=== PATIENT | male | born 1990 | race African-American/Black ===

== ENCOUNTER 2021-01-13 00:41 | Emergency (ER) | payer OTHER ==
[2021-01-13 01:56] VITALS: BP 120/80; PULSE 72; RESP 22; TEMP 97.8
--- NOTE | 2021-01-13 02:19 | XR ---
EXAMINATION TYPE: XR knee complete LT DATE OF EXAM: 01/13/2021 COMPARISON: NONE HISTORY: Knee pain TECHNIQUE: 3 views FINDINGS: There is 7 x 3 mm bony density at the tibial spines in the frontal view that could relate t o a chip fracture. This is probably old. There is small knee joint effusion. Joint spaces are normal. IMPRESSION: Small chip fracture of the tibial spine. This is probably an old fracture.
--- NOTE | 2021-01-13 03:38 | ED ---
Lower Extremity Injury HPI - General Chief Complaint: Extremity Injury, Lower Stated Complaint: knee pain Time Seen by Provider: 01/13/21 03:29 Source: patient Mode of arrival: ambulatory Limitations: no limitations - History of Present Illness Initial Comments: 30-year-old male patient presents the emergency department today for evaluation of increasing knee pain. Patient states that he had an injury to the left knee around 10 years ago. States that he occasionally has flareups of the pain. States that while working 12 hour shift today his knee pain got worse. Denies any swelling. Denies any redness or warmth to the knee. Denies any fever or chills. Denies numbness or tingling to the leg. Denies any new injury. Denies taking anything for pain. - Related Data Previous Rx's Medication Instructions Recorded Ibuprofen [Motrin] 600 mg PO Q8HR PRN #30 tab 01/13/21 Allergies Allergy/AdvReac Type Severity Reaction Status Date / Time No Known Allergies Allergy Verified 01/13/21 01:55 Review of Systems ROS Statement: Those systems with pertinent positive or pertinent negative responses have been documented in the HPI. ROS Other: All systems not noted in ROS Statement are negative. Past Medical History Past Medical History: Asthma History of Any Multi-Drug Resistant Organisms: None Reported Past Surgical History: Orthopedic Surgery Past Psychological History: No Psychological Hx Reported Smoking Status: Current every day smoker Past Alcohol Use History: Occasional Past Drug Use History: None Reported General Exam Limitations: no limitations General appearance: alert, in no apparent distress Respiratory exam: Present: normal lung sounds bilaterally. Absent: respiratory distress, wheezes, rales, rhonchi, stridor Cardiovascular Exam: Present: regular rate, normal rhythm, normal heart sounds. Absent: systolic murmur, diastolic murmur, rubs, gallop, clicks Extremities exam: Present: normal inspection, full ROM, normal capillary refill, other (Skin the left leg is pink, warm, dry. Cap refill less than 3 seconds. Pedal and posttibial pulses 2+.). Absent: tenderness, pedal edema, joint swelling, calf tenderness Neurological exam: Present: alert, oriented X3, CN II-XII intact Psychiatric exam: Present: normal affect, normal mood Skin exam: Present: warm, dry, intact, normal color. Absent: rash Course Vital Signs 01/13/21 01:52 Temperature 97.8 F Pulse Rate 72 Respiratory 22 Rate Blood Pressure 120/80 O2 Sat by Pulse 99 Oximetry Medical Decision Making - Medical Decision Making 30-year-old male patient presented for evaluation of nontraumatic knee pain. Physical examination is unremarkable. No soft tissue swelling, no erythema, no warmth. Neurovascular status is intact. X-ray is negative for acute injury. Did discuss findings and results with him. He is given Benjamín wrap for comfort and support. Is instructed take Tylenol Motrin for pain control. Instructed to follow-up with the primary care physician or orthopedics of his symptoms do not improve. Return parameters were discussed in detail. He verbalizes understanding and agrees with this plan. My attending is Dr. Dickey. - Radiology Data Radiology results: report reviewed, image reviewed 3 views of the left knee are obtained. Report was reviewed in its entirety. Impression by Dr. Grove shows small chip fracture of the tibial spine. This is probably an old fracture. Disposition Clinical Impression: Left knee pain Disposition: HOME SELF-CARE Condition: Good Instructions (If sedation given, give patient instructions): Knee Pain (ED) Additional Instructions: Rest, ice, elevate the knee. Use Benjamín wrap for comfort and support. Take Tylenol Motrin for pain control. Follow-up with orthopedics if your symptoms worsen. Return for any new, worsening, or concerning symptoms. Prescriptions: Ibuprofen [Motrin] 600 mg PO Q8HR PRN #30 tab PRN Reason: Pain Is patient prescribed a controlled substance at d/c from ED?: No Referrals: None,Stated [Primary Care Provider] - 1-2 days Time of Disposition: 03:38
== END 2021-01-13 03:48 | disposition home or self-care (01) ==
LOC: EC 00:41
DX: M25.562 Pain in left knee (principal); J45.909 Unspecified asthma, uncomplicated; F17.200 Nicotine dependence, unspecified, uncomplicated
CPT/HCPCS: 99283

== ENCOUNTER 2021-01-15 01:18 | Emergency (ER) | payer OTHER ==
[2021-01-15] MEDS ORDERED: guaiFENesin-DM 600/30MG 1 EACH TAB.ER.12H PO STA (01:41)
[2021-01-15] MEDS ORDERED: IBUPROFEN 600 MG STARTER PACK 4 TAB BTL PO STA (01:41)
--- NOTE | 2021-01-15 01:43 | ED ---
URI HPI - General Chief Complaint: Upper Respiratory Infection Stated Complaint: Fever, Headache Time Seen by Provider: 01/15/21 01:28 Source: patient Mode of arrival: ambulatory Limitations: no limitations - History of Present Illness Initial Comments: 30 year-old male patient presents to the emergency department for evaluation of facial pressure, congestion, and body aches. States he started with symptoms today. He did take ibuprofen around 2:30 this afternoon. Denies other medications. States he was in the waiting room of the ER the other day, may have been exposed to COVID. He denies taking his temperature. States he does have history of asthma as a child. Uses an albuterol inhaler as needed. Denies any nausea or vomiting. Denies any chest pain or shortness of breath. Denies any rash. - Related Data Previous Rx's Medication Instructions Recorded Ibuprofen [Motrin] 600 mg PO Q8HR PRN #30 tab 01/13/21 Allergies Allergy/AdvReac Type Severity Reaction Status Date / Time No Known Allergies Allergy Verified 01/15/21 01:23 Review of Systems ROS Statement: Those systems with pertinent positive or pertinent negative responses have been documented in the HPI. ROS Other: All systems not noted in ROS Statement are negative. Past Medical History Past Medical History: Asthma History of Any Multi-Drug Resistant Organisms: None Reported Past Surgical History: Orthopedic Surgery Additional Past Surgical History / Comment(s): rt wrist Past Psychological History: No Psychological Hx Reported Smoking Status: Current every day smoker Past Alcohol Use History: Occasional Past Drug Use History: None Reported General Exam Limitations: no limitations General appearance: alert, in no apparent distress, other (This is a well- developed, well-nourished adult male in no acute distress.) ENT exam: Present: normal exam, normal oropharynx, mucous membranes moist, TM's normal bilaterally Respiratory exam: Present: normal lung sounds bilaterally. Absent: respiratory distress, wheezes, rales, rhonchi, stridor Cardiovascular Exam: Present: regular rate, normal rhythm, normal heart sounds. Absent: systolic murmur, diastolic murmur, rubs, gallop, clicks GI/Abdominal exam: Present: soft, normal bowel sounds. Absent: distended, tenderness, guarding, rebound, rigid Neurological exam: Present: alert, oriented X3, CN II-XII intact Psychiatric exam: Present: normal affect, normal mood Skin exam: Present: warm, dry, intact, normal color. Absent: rash Course Vital Signs 01/15/21 01:19 Temperature 99.3 F Pulse Rate 80 Respiratory 20 Rate Blood Pressure 125/84 O2 Sat by Pulse 100 Oximetry Medical Decision Making - Medical Decision Making 30-year-old male patient with nasal congestion and facial pressure and body aches presents for evaluation. He did test positive for COVID-19. Physical examination is unremarkable. He is having no breathing difficulties. Due to history of asthma he did meet criteria to receive monoclonal antibodies. Discuss risks and benefits. He agreed to receive the infusion. He'll be discharged to follow up with his primary care physician for recheck in 1-2 days. Return parameters were discussed in detail. He verbalizes understanding and agrees with this plan. Case discussed with my attending Dr. Dickey. - Lab Data Lab Results 01/15/21 Range/Units 01:24 Coronavirus (PCR) Detected A (Not Detectd) Disposition Clinical Impression: COVID-19 Disposition: HOME SELF-CARE Condition: Good Instructions (If sedation given, give patient instructions): Coronavirus Disease 2019 (COVID-19) Additional Instructions: Tips to help you feel better: -Maintain adequate fluid intake - especially water. -Rest, you are healing your body will require extra sleep. -Eat even if you do not feel like it - broth, jello, toast are fine if you cannot eat full meals. -Take tylenol and motrin alternating (if you have no allergies or have not been instructed to avoid these medications) to help with body aches and fevers. -Obtain over the counter vitamin C, zinc, and vitamin D3. -Take medications as prescribed. Follow-up with your primary care physician for recheck in 1-2 days. Return for any new, worsening, or concerning symptoms. Is patient prescribed a controlled substance at d/c from ED?: No Referrals: None,Stated [Primary Care Provider] - 1-2 days
[2021-01-15] MEDS ORDERED: SODIUM CHLORIDE 0.9% 50 ML IVPB ONE (02:30)
[2021-01-15] MEDS ORDERED: SOTROVIMAB (EUA) 500 MG in SODIUM CHLORIDE 0.9% 100 ML IVPB ONE (02:30)
[2021-01-15 03:39] VITALS: RESP 18
[2021-01-15 05:40] VITALS: BP 126/80; PULSE 79; TEMP 98.8
== END 2021-01-15 05:40 | disposition home or self-care (01) ==
LOC: EC 01:18
DX: U07.1 COVID-19 (principal); J45.909 Unspecified asthma, uncomplicated; F17.200 Nicotine dependence, unspecified, uncomplicated
CPT/HCPCS: 87635; 99284; Q0247

== ENCOUNTER 2021-01-17 08:27 | Emergency (ER) | payer OTHER ==
[2021-01-17 08:32] VITALS: RESP 18
[2021-01-17] MEDS ORDERED: SODIUM CHLORIDE 0.9% 1,000 ML IV STA (08:40)
[2021-01-17] MEDS ORDERED: KETOROLAC 15 MG/ML 1 ML VIAL IVP STA (08:40)
[2021-01-17 09:04] LABS: Basophils % (A) 1 %; Eosinophils # (A) 0.2 k/uL (0-0.7); Eosinophils % (A) 3 %; Lymphocytes % (A) 16 %; MCH 32.1 pg (25.0-35.0); MCHC 33.7 g/dL (31.0-37.0); Mean Platelet Volume 7.6; Monocytes # (A) 0.1 k/uL (0-1.0); Monocytes % (A) 2 %; Neutrophils # (A) 5.1 k/uL (1.3-7.7); Neutrophils % (A) 78 %; Platelet Count 207 k/uL (150-450); RBC 6.19 m/uL (4.30-5.90); RDW 12.9 % (11.5-15.5); WBC 6.6 k/uL (3.8-10.6)
--- NOTE | 2021-01-17 09:13 | XR ---
EXAMINATION TYPE: XR KUB DATE OF EXAM: 01/17/2021 COMPARISON: None INDICATION: Abdomen pain and urine TECHNIQUE: Single view abdomen upright view FINDINGS: There is a nonspecific bowel gas pattern. Psoas margins are poorly visualized. Organomegaly is not evident. Scoliosis the lower lumbar spine. No suspicious renal or ureteral stones are evident. IMPRESSION: 1. Nonspecific abdomen
[2021-01-17 09:17] LABS: Appearance,Urine Clear (Clear); Bilirubin,Urine Negative (Negative); Blood,Urine Large (Negative); Color,Urine Yellow; Glucose,Urine (UA) Negative (Negative); Ketones,Urine Negative (Negative); Leukocyte Esterase,Urine Small (Negative); Mucus,Urine Rare /hpf; Nitrite,Urine Negative (Negative); PH, Urine 6.5 (5.0-8.0); Protein,Urine Trace (Negative); RBC,Urine >182 /hpf (0-5); Specific Gravity,Urine 1.022 (1.001-1.035); Squamous Epithelial Cell,Urine 1 /hpf (0-4); Urobilinogen,Urine <2.0 mg/dL (<2.0); WBC,Urine 19 /hpf (0-5)
[2021-01-17 09:22] LABS: ALT 48 U/L (4-49); AST 50 U/L (17-59); African American GFR (CKD) >90 (>60 ml/min/1.73 sqM); Albumin 5.6 g/dL (3.5-5.0); Alkaline Phosphatase 118 U/L (38-126); Amylase 99 U/L (30-110); Anion Gap 15 mmol/L; Blood Urea Nitrogen 10 mg/dL (9-20); Calcium 10.1 mg/dL (8.4-10.2); Carbon Dioxide 23 mmol/L (22-30); Chloride 104 mmol/L (98-107); Glucose 107 mg/dL (74-99); Lipase 195 U/L (23-300); Non-African American GFR(CKD) >90 (>60 ml/min/1.73 sqM); Potassium 4.1 mmol/L (3.5-5.1); Sodium 142 mmol/L (137-145); Total Bilirubin 0.6 mg/dL (0.2-1.3); Total Protein 9.9 g/dL (6.3-8.2)
[2021-01-17 09:29] LABS: HCT 58.8 % (39.0-53.0); HGB 19.8 gm/dL (13.0-17.5)
--- NOTE | 2021-01-17 10:04 | ED ---
Abdominal Pain HPI - General Chief Complaint: Abdominal Pain Stated Complaint: Covid+/LINDA/Blood in Urine Time Seen by Provider: 01/17/21 08:33 Source: patient, RN notes reviewed Mode of arrival: ambulatory Limitations: no limitations - History of Present Illness Initial Comments: Patient is a 30-year-old male that presents to the emergency department due to having blood and discomfort in his urine. Patient notes that he did have a recent sexual encounter and would like to be tested for STDs also. He notes that he contacted his partner who stated that she is STD free. Patient was otherwise well-appearing in no apparent distress. He did know he has a history of kidney stones. He denied chest pain shortness of breath headache nausea vomiting diarrhea constipation fever fatigue chills. - Related Data Home Medications Medication Instructions Recorded Confirmed Acetaminophen Tab [Tylenol Tab] 1,000 mg PO Q6HR PRN 01/17/21 01/17/21 Ibuprofen [Motrin Ib] 400 mg PO Q6H PRN 01/17/21 01/17/21 Previous Rx's Medication Instructions Recorded Cephalexin [Keflex] 500 mg PO Q6HR #40 cap 01/17/21 Ketorolac [Toradol] 10 mg PO Q8HR #15 tab 01/17/21 Tamsulosin [Flomax] 0.4 mg PO DAILY #7 cap 01/17/21 Allergies Allergy/AdvReac Type Severity Reaction Status Date / Time No Known Allergies Allergy Verified 01/17/21 09:48 Review of Systems ROS Statement: Those systems with pertinent positive or pertinent negative responses have been documented in the HPI. ROS Other: All systems not noted in ROS Statement are negative. Past Medical History Past Medical History: Asthma History of Any Multi-Drug Resistant Organisms: None Reported Past Surgical History: Orthopedic Surgery Additional Past Surgical History / Comment(s): rt wrist Past Psychological History: No Psychological Hx Reported Smoking Status: Current every day smoker Past Alcohol Use History: Occasional Past Drug Use History: None Reported General Exam Limitations: no limitations General appearance: alert, in no apparent distress Head exam: Present: atraumatic, normocephalic, normal inspection Eye exam: Present: normal appearance, PERRL, EOMI. Absent: scleral icterus, con junctival injection, periorbital swelling ENT exam: Present: normal exam, mucous membranes moist Neck exam: Present: normal inspection Respiratory exam: Present: normal lung sounds bilaterally. Absent: respiratory distress, wheezes, rales, rhonchi, stridor Cardiovascular Exam: Present: regular rate, normal rhythm, normal heart sounds. Absent: systolic murmur, diastolic murmur, rubs, gallop, clicks GI/Abdominal exam: Present: soft, normal bowel sounds. Absent: distended, tenderness, guarding, rebound, rigid Extremities exam: Present: normal inspection, full ROM, normal capillary refill. Absent: tenderness, pedal edema, joint swelling, calf tenderness Back exam: Present: normal inspection, CVA tenderness (L) Neurological exam: Present: alert, oriented X3 Psychiatric exam: Present: normal affect, normal mood Skin exam: Present: warm, dry, intact, normal color. Absent: rash Course Vital Signs 01/17/21 08:28 Temperature 98.3 F Pulse Rate 66 Respiratory 18 Rate Blood Pressure 116/78 O2 Sat by Pulse 100 Oximetry Procedures - [facility] Protocol (Time Out) Nurse: Wiliam Conteh Medical Decision Making - Medical Decision Making 30-year-old male complaining of hematuria and discomfort in his urine, history of kidney stones. Labs, STD screening, KUB, 15 mg of Toradol, 1 L normal saline ordered. Labs:Hemoglobin 19.8, hematocrit 58.8, CMP unremarkable, urinalysis shows greater than 182 red blood cells 19 white blood cells. Second liter of normal saline ordered due to elevated hemoglobin and hematocrit and patient's dehydration status. 1 g Rocephin ordered for possible UTI. KUB negative for any acute process. Patient most likely has kidney stone. - Lab Data Result diagrams: 01/17/21 08:53 01/17/21 08:53 Lab Results 01/17/21 01/17/21 01/17/21 Range/Units 08:46 08:53 08:53 WBC 6.6 (3.8-10.6) k/uL RBC 6.19 H (4.30-5.90) m/uL Hgb 19.8 H* (13.0-17.5) gm/dL Hct 58.8 H* (39.0-53.0) % MCV 95.0 (80.0-100.0) fL MCH 32.1 (25.0-35.0) pg MCHC 33.7 (31.0-37.0) g/dL RDW 12.9 (11.5-15.5) % Plt Count 207 (150-450) k/uL MPV 7.6 Neutrophils % 78 % Lymphocytes % 16 % Monocytes % 2 % Eosinophils % 3 % Basophils % 1 % Neutrophils # 5.1 (1.3-7.7) k/uL Lymphocytes # 1.0 (1.0-4.8) k/uL Monocytes # 0.1 (0-1.0) k/uL Eosinophils # 0.2 (0-0.7) k/uL Basophils # 0.0 (0-0.2) k/uL Sodium 142 (137-145) mmol/L Potassium 4.1 (3.5-5.1) mmol/L Chloride 104 (98-107) mmol/L Carbon Dioxide 23 (22-30) mmol/L Anion Gap 15 mmol/L BUN 10 (9-20) mg/dL Creatinine 0.93 (0.66-1.25) mg/dL Est GFR (CKD-EPI)AfAm >90 (>60 ml/min/1.73 sqM) Est GFR (CKD-EPI)NonAf >90 (>60 ml/min/1.73 sqM) Glucose 107 H (74-99) mg/dL Calcium 10.1 (8.4-10.2) mg/dL Total Bilirubin 0.6 (0.2-1.3) mg/dL AST 50 (17-59) U/L ALT 48 (4-49) U/L Alkaline Phosphatase 118 (38-126) U/L Total Protein 9.9 H (6.3-8.2) g/dL Albumin 5.6 H (3.5-5.0) g/dL Amylase 99 (30-110) U/L Lipase 195 (23-300) U/L Urine Color Yellow Urine Appearance Clear (Clear) Urine pH 6.5 (5.0-8.0) Ur Specific [place] 1.022 (1.001-1.035) Urine Protein Trace H (Negative) Urine Glucose (UA) Negative (Negative) Urine Ketones Negative (Negative) Urine Blood Large H (Negative) Urine Nitrite Negative (Negative) Urine Bilirubin Negative (Negative) Urine Urobilinogen <2.0 (<2.0) mg/dL Ur Leukocyte Esterase Small H (Negative) Urine RBC >182 H (0-5) /hpf Urine WBC 19 H (0-5) /hpf Ur Squamous Epith Cells 1 (0-4) /hpf Urine Mucus Rare H (None) /hpf - Radiology Data Radiology results: report reviewed, image reviewed KUB: Nonspecific abdomen. Disposition Clinical Impression: Kidney stone, Hematuria Disposition: HOME SELF-CARE Condition: Stable Instructions (If sedation given, give patient instructions): Kidney Stones (ED) Additional Instructions: Please return to the Emergency Department if symptoms worsen or any other concerns. Follow-up with primary care 1-2 days. Take medications as prescribed. Is patient prescribed a controlled substance at d/c from ED?: No Referrals: None,Stated [Primary Care Provider] - 1-2 days Time of Disposition: 10:17
[2021-01-17 10:51] VITALS: BP 113/56; PULSE 77; TEMP 97
[2021-01-18 16:47] LABS: C. trachomatis,PCR Negative (Neg,Equiv); Chlamydia trachomatis Source Urine; N. gonorrhoeae,PCR Negative (Neg,Equiv); Neisseria Source Urine
== END 2021-01-17 11:15 | disposition home or self-care (01) ==
LOC: EC 08:27
DX: N20.0 Calculus of kidney (principal); R31.9 Hematuria, unspecified; F17.200 Nicotine dependence, unspecified, uncomplicated
CPT/HCPCS: 36415; 80053; 82150; 83690; 85025; 81001; 87491; 87591; 87086; 74018; 96374; 99283; J1885

== ENCOUNTER 2021-02-13 00:03 | Emergency (ER) | payer OTHER ==
[2021-02-13 00:13] VITALS: BP 93/61; PULSE 86; RESP 18; TEMP 97.2
[2021-02-13] MEDS ORDERED: ACET/COD 300 MG/30 MG STARTER PACK 6 TAB BTL PO STA (02:41)
[2021-02-13] MEDS ORDERED: DIAZEPAM 5 MG/ML 2 ML INJ IM ONE (02:42)
[2021-02-13] MEDS ORDERED: KETOROLAC 15 MG/ML 1 ML VIAL IM STA (02:42)
--- NOTE | 2021-02-13 02:43 | ED ---
Back Pain HPI - General Chief Complaint: Back Pain/Injury Stated Complaint: Low Back Pain Time Seen by Provider: 02/13/21 01:57 Source: patient Limitations: no limitations - History of Present Illness Initial Comments: 30-year-old male patient presents to the emergency department today for evaluation of increased his chronic low back pain. Patient states his been worsening over the last couple days after he lifted a heavy suitcase. He states he felt his back pull. Denies pain radiation down his legs. Denies numbness or tingling to the lower extremities. Denies any fever or chills. Denies abdominal pain. He denies any saddle anesthesia, loss of bowel or bladder control. Patient states he did take Tylenol Motrin at home without relief. - Related Data Home Medications Medication Instructions Recorded Confirmed Acetaminophen Tab [Tylenol Tab] 1,000 mg PO Q6HR PRN 01/17/21 01/17/21 Ibuprofen [Motrin Ib] 400 mg PO Q6H PRN 01/17/21 01/17/21 Previous Rx's Medication Instructions Recorded Albuterol Sulfate [Albuterol 2 puff PO Q6H #8.5 gm 01/17/21 Sulfate Hfa] Cephalexin [Keflex] 500 mg PO Q6HR #40 cap 01/17/21 Ketorolac [Toradol] 10 mg PO Q8HR #15 tab 01/17/21 Tamsulosin [Flomax] 0.4 mg PO DAILY #7 cap 01/17/21 Cyclobenzaprine [Flexeril] 10 mg PO TID #15 tab 02/13/21 Naproxen [EC-Naprosyn] 500 mg PO BID PRN #30 tab 02/13/21 Allergies Allergy/AdvReac Type Severity Reaction Status Date / Time No Known Allergies Allergy Verified 02/13/21 00:13 Review of Systems ROS Statement: Those systems with pertinent positive or pertinent negative responses have been documented in the HPI. ROS Other: All systems not noted in ROS Statement are negative. Past Medical History Past Medical History: Asthma History of Any Multi-Drug Resistant Organisms: None Reported Past Surgical History: Orthopedic Surgery Additional Past Surgical History / Comment(s): rt wrist Past Psychological History: No Psychological Hx Reported Smoking Status: Never smoker Past Alcohol Use History: Occasional Past Drug Use History: None Reported General Exam Limitations: no limitations General appearance: alert, in no apparent distress, other (This is a well- developed, well-nourished adult male in no acute distress.) Respiratory exam: Present: normal lung sounds bilaterally. Absent: respiratory distress, wheezes, rales, rhonchi, stridor Cardiovascular Exam: Present: regular rate, normal rhythm, normal heart sounds. Absent: systolic murmur, diastolic murmur, rubs, gallop, clicks GI/Abdominal exam: Present: soft, normal bowel sounds. Absent: distended, tenderness, guarding, rebound, rigid Extremities exam: Present: normal inspection, full ROM, normal capillary refill, other (Skin to his lower child is is pink, warm, dry. Cap refill less than 3 seconds.). Absent: tenderness, pedal edema, joint swelling, calf tenderness Back exam: Present: normal inspection. Absent: vertebral tenderness Neurological exam: Present: alert, oriented X3, CN II-XII intact Psychiatric exam: Present: normal affect, normal mood Skin exam: Present: warm, dry, intact, normal color. Absent: rash Course Vital Signs 02/13/21 00:10 Temperature 97.2 F L Pulse Rate 86 Respiratory 18 Rate Blood Pressure 93/61 O2 Sat by Pulse 99 Oximetry Medical Decision Making - Medical Decision Making 30-year-old male patient presents to the emergency department today for evaluation of low back pain that since after he lifted a suitcase. Physical examination is unremarkable. He is neurovascularly and neurologically intact. No concerning symptoms for cauda equina. Vital signs are unremarkable. He is given pain medication here. We discharged to follow up with the primary care physician for recheck in 1-2 days. Return parameters were discussed in detail. He verbalizes understanding and agrees this plan. My attending is Dr. Romero. Disposition Clinical Impression: Acute low back pain Disposition: HOME SELF-CARE Condition: Good Instructions (If sedation given, give patient instructions): Acute Low Back Pain (ED) Additional Instructions: Perform gentle range of motion exercises. Take medications as directed. Follow-up with the primary care physician for recheck in 1-2 days. Follow-up with back specialist if her symptoms are not improved over the next 1-2 weeks. Return for any new, worsening, or concerning symptoms. Prescriptions: Naproxen [EC-Naprosyn] 500 mg PO BID PRN #30 tab PRN Reason: Pain Cyclobenzaprine [Flexeril] 10 mg PO TID #15 tab Is patient prescribed a controlled substance at d/c from ED?: No Referrals: Francisco Sun DO [Doctor of Osteopathic Medicine] - 1-2 days Time of Disposition: 02:43
== END 2021-02-13 02:57 | disposition home or self-care (01) ==
LOC: EC 00:03
DX: M54.50 Low back pain, unspecified (principal); J45.909 Unspecified asthma, uncomplicated; Z72.89 Other problems related to lifestyle; Z79.51 Long term (current) use of inhaled steroids
CPT/HCPCS: 99283; 96372 ×2; J3360; J1885

== ENCOUNTER 2021-07-25 15:11 | Emergency (ER) | payer OTHER ==
[2021-07-25 15:21] VITALS: TEMP 98.7
[2021-07-25 15:58] LABS: Basophils # (A) 0.1 k/uL (0-0.2); Basophils % (A) 2 %; Eosinophils % (A) 1 %; HGB 15.8 gm/dL (13.0-17.5); Lymphocytes # (A) 0.6 k/uL (1.0-4.8); Lymphocytes % (A) 9 %; MCH 30.9 pg (25.0-35.0); MCHC 33.6 g/dL (31.0-37.0); MCV 91.7 fL (80.0-100.0); Mean Platelet Volume 7.4; Monocytes # (A) 0.5 k/uL (0-1.0); Monocytes % (A) 8 %; Neutrophils # (A) 4.9 k/uL (1.3-7.7); Neutrophils % (A) 78 %; Platelet Count 197 k/uL (150-450); RBC 5.12 m/uL (4.30-5.90); WBC 6.4 k/uL (3.8-10.6)
[2021-07-25 16:02] LABS: ALT 77 U/L (4-49); AST 61 U/L (17-59); African American GFR (CKD) >90 (>60 ml/min/1.73 sqM); Albumin 4.8 g/dL (3.5-5.0); Alkaline Phosphatase 86 U/L (38-126); Anion Gap 11 mmol/L; Blood Urea Nitrogen 7 mg/dL (9-20); Calcium 9.1 mg/dL (8.4-10.2); Carbon Dioxide 21 mmol/L (22-30); Chloride 107 mmol/L (98-107); Glucose 100 mg/dL (74-99); Non-African American GFR(CKD) >90 (>60 ml/min/1.73 sqM); Potassium 3.6 mmol/L (3.5-5.1); Sodium 139 mmol/L (137-145); Total Bilirubin 0.4 mg/dL (0.2-1.3); Total Protein 7.7 g/dL (6.3-8.2)
--- NOTE | 2021-07-25 16:23 | XR ---
EXAMINATION TYPE: XR chest 2V DATE OF EXAM: 07/25/2021 COMPARISON: None available HISTORY: Shortness of breath and chest pain TECHNIQUE: Frontal and lateral views of the chest are obtained. FINDINGS: Unremarkable lungs. No pleural effusion or pneumothorax. No cardiomegaly. Unremarkable bony thoracic cage. IMPRESSION: No acute pulmonary abnormality identified.
--- NOTE | 2021-07-25 16:25 | ED ---
URI HPI - General Chief Complaint: Upper Respiratory Infection Stated Complaint: Chest Cold,SOB Time Seen by Provider: 07/25/21 15:42 Source: patient, RN notes reviewed Mode of arrival: ambulatory Limitations: no limitations - History of Present Illness Initial Comments: Patient is a 30-year-old -[place] Citizen male presents to the emergency room with complaints of worsening shortness of breath that began yesterday. He reports that he is currently living in a group setting and one of the other residents was recently sick, testing positive for influenza. He has a past medical history significant for asthma however he denies any recent flares or current medication for his asthma. He denies fevers, chills, chest pain, abdominal pain, nausea, vomiting or diarrhea. He denies any other complaints or concerns at this time. - Related Data Home Medications Medication Instructions Recorded Confirmed Acetaminophen Tab [Tylenol Tab] 1,000 mg PO Q6HR PRN 01/17/21 01/17/21 Ibuprofen [Motrin Ib] 400 mg PO Q6H PRN 01/17/21 01/17/21 Previous Rx's Medication Instructions Recorded Albuterol Sulfate [Albuterol 2 puff PO Q6H #8.5 gm 01/17/21 Sulfate Hfa] Cephalexin [Keflex] 500 mg PO Q6HR #40 cap 01/17/21 Ketorolac [Toradol] 10 mg PO Q8HR #15 tab 01/17/21 Tamsulosin [Flomax] 0.4 mg PO DAILY #7 cap 01/17/21 Cyclobenzaprine [Flexeril] 10 mg PO TID #15 tab 02/13/21 Naproxen [EC-Naprosyn] 500 mg PO BID PRN #30 tab 02/13/21 Albuterol Inhaler [Ventolin Hfa 2 puff INHALATION RT-QID PRN #8 gm 07/25/21 Inhaler] Oseltamivir [Tamiflu] 75 mg PO Q12HR 5 Days #10 cap 07/25/21 methylPREDNISolone Dose Pack 4 mg PO DIRECTED #21 tab 07/25/21 [Medrol Dose Pack] Allergies Allergy/AdvReac Type Severity Reaction Status Date / Time No Known Allergies Allergy Verified 07/25/21 15:21 Review of Systems ROS Statement: Those systems with pertinent positive or pertinent negative responses have been documented in the HPI. ROS Other: All systems not noted in ROS Statement are negative. Past Medical History Past Medical History: Asthma History of Any Multi-Drug Resistant Organisms: None Reported Past Surgical History: Orthopedic Surgery Additional Past Surgical History / Comment(s): rt wrist Past Psychological History: No Psychological Hx Reported Smoking Status: Never smoker Past Alcohol Use History: Occasional Past Drug Use History: None Reported General Exam Limitations: no limitations General appearance: alert, in no apparent distress Head exam: Present: atraumatic, normocephalic, normal inspection Eye exam: Present: normal appearance, PERRL, EOMI. Absent: scleral icterus, conjunctival injection, periorbital swelling ENT exam: Present: normal exam, mucous membranes moist Neck exam: Present: normal inspection. Absent: tenderness, meningismus, lymphadenopathy Respiratory exam: Present: decreased breath sounds (Throughout). Absent: respiratory distress, wheezes, rales, rhonchi, stridor Cardiovascular Exam: Present: regular rate, normal rhythm, normal heart sounds. Absent: systolic murmur, diastolic murmur, rubs, gallop, clicks GI/Abdominal exam: Present: soft, normal bowel sounds. Absent: distended, tenderness, guarding, rebound, rigid Extremities exam: Present: normal inspection. Absent: pedal edema, joint swelling Neurological exam: Present: alert, oriented X3, CN II-XII intact Psychiatric exam: Present: normal affect, normal mood Skin exam: Present: warm, dry, intact, normal color. Absent: rash Course Vital Signs 07/25/21 07/25/21 07/25/21 15:18 16:20 16:41 Temperature 98.7 F Pulse Rate 87 74 Respiratory 16 18 18 Rate Blood Pressure 124/74 164/87 O2 Sat by Pulse 98 95 Oximetry Medical Decision Making - Medical Decision Making CMP, CBC, influenza and COVID testing completed. No significant abnormalities of concern on CBC or CMP. Negative for influenza B and COVID. Influenza A positive. Chest x-ray with no acute pulmonary abnormality is identified. EKG sinus rhythm. Due to diminished lung sounds will give Solu-Medrol IM 1 dose and monitor for response if airway remained stable will plan for discharge home on Tamiflu along with Medrol Dosepak and albuterol inhaler utilize as needed. Patient improved with I am dose of Solu-Medrol. Will discharge home. Return parameters discussed at length. - Lab Data Result diagrams: 07/25/21 15:37 07/25/21 15:37 Lab Results 07/25/21 07/25/21 07/25/21 Range/Units 15:37 15:37 15:37 WBC 6.4 (3.8-10.6) k/uL RBC 5.12 (4.30-5.90) m/uL Hgb 15.8 (13.0-17.5) gm/dL Hct 47.0 (39.0-53.0) % MCV 91.7 (80.0-100.0) fL MCH 30.9 (25.0-35.0) pg MCHC 33.6 (31.0-37.0) g/dL RDW 12.0 (11.5-15.5) % Plt Count 197 (150-450) k/uL MPV 7.4 Neutrophils % 78 % Lymphocytes % 9 % Monocytes % 8 % Eosinophils % 1 % Basophils % 2 % Neutrophils # 4.9 (1.3-7.7) k/uL Lymphocytes # 0.6 L (1.0-4.8) k/uL Monocytes # 0.5 (0-1.0) k/uL Eosinophils # 0.0 (0-0.7) k/uL Basophils # 0.1 (0-0.2) k/uL APTT (22.0-30.0) sec Sodium 139 (137-145) mmol/L Potassium 3.6 (3.5-5.1) mmol/L Chloride 107 (98-107) mmol/L Carbon Dioxide 21 L (22-30) mmol/L Anion Gap 11 mmol/L BUN 7 L (9-20) mg/dL Creatinine 0.81 (0.66-1.25) mg/dL Est GFR (CKD-EPI)AfAm >90 (>60 ml/min/1.73 sqM) Est GFR (CKD-EPI)NonAf >90 (>60 ml/min/1.73 sqM) Glucose 100 H (74-99) mg/dL Calcium 9.1 (8.4-10.2) mg/dL Total Bilirubin 0.4 (0.2-1.3) mg/dL AST 61 H (17-59) U/L ALT 77 H (4-49) U/L Alkaline Phosphatase 86 (38-126) U/L Troponin I (0.000-0.034) ng/mL Total Protein 7.7 (6.3-8.2) g/dL Albumin 4.8 (3.5-5.0) g/dL Coronavirus (PCR) (Not Detectd) Influenza Type A RNA Detected H (Not Detectd) Influenza Type B (PCR) Not Detected (Not Detectd) 07/25/21 07/25/21 07/25/21 Range/Units 15:37 15:37 15:37 WBC (3.8-10.6) k/uL RBC (4.30-5.90) m/uL Hgb (13.0-17.5) gm/dL Hct (39.0-53.0) % MCV (80.0-100.0) fL MCH (25.0-35.0) pg MCHC (31.0-37.0) g/dL RDW (11.5-15.5) % Plt Count (150-450) k/uL MPV Neutrophils % % Lymphocytes % % Monocytes % % Eosinophils % % Basophils % % Neutrophils # (1.3-7.7) k/uL Lymphocytes # (1.0-4.8) k/uL Monocytes # (0-1.0) k/uL Eosinophils # (0-0.7) k/uL Basophils # (0-0.2) k/uL APTT 28.0 (22.0-30.0) sec Sodium (137-145) mmol/L Potassium (3.5-5.1) mmol/L Chloride (98-107) mmol/L Carbon Dioxide (22-30) mmol/L Anion Gap mmol/L BUN (9-20) mg/dL Creatinine (0.66-1.25) mg/dL Est GFR (CKD-EPI)AfAm (>60 ml/min/1.73 sqM) Est GFR (CKD-EPI)NonAf (>60 ml/min/1.73 sqM) Glucose (74-99) mg/dL Calcium (8.4-10.2) mg/dL Total Bilirubin (0.2-1.3) mg/dL AST (17-59) U/L ALT (4-49) U/L Alkaline Phosphatase (38-126) U/L Troponin I <0.012 (0.000-0.034) ng/mL Total Protein (6.3-8.2) g/dL Albumin (3.5-5.0) g/dL Coronavirus (PCR) Not Detected (Not Detectd) Influenza Type A RNA (Not Detectd) Influenza Type B (PCR) (Not Detectd) - EKG Data EKG Comments: Sinus rhythm, possible right ventricular conduction delay. Ventricular rate 83 bpm, [place] interval 151 ms, QRS duration 110 ms QT/QTc 339/379 ms, PRT axes 76, 63, 44 When compared to previous EKG there are: previous EKG unavailable - Radiology Data Radiology results: report reviewed, image reviewed Two-view chest x-ray findings unremarkable lungs. No pleural effusion or pneumothorax. No cardiomegaly. Unremarkable bony thorax cage. Impression: No acute pulmonary abnormality identified. Disposition Clinical Impression: Influenza Disposition: HOME SELF-CARE Condition: Fair Instructions (If sedation given, give patient instructions): Influenza (ED) Additional Instructions: Please return to the Emergency Department if symptoms worsen or any other concerns. Prescriptions: methylPREDNISolone Dose Pack [Medrol Dose Pack] 4 mg PO DIRECTED #21 tab Oseltamivir [Tamiflu] 75 mg PO Q12HR 5 Days #10 cap Albuterol Inhaler [Ventolin Hfa Inhaler] 2 puff INHALATION RT-QID PRN #8 gm PRN Reason: Shortness Of Breath Or Wheezing Is patient prescribed a controlled substance at d/c from ED?: No Referrals: None,Stated [Primary Care Provider] - 1-2 days Time of Disposition: 17:18
[2021-07-25 16:41] VITALS: RESP 18
[2021-07-25] MEDS ORDERED: methylPREDNISolone SOD SUCCI 125 MG/2 ML VIAL IM ONE (16:41)
[2021-07-25 17:01] VITALS: BP 164/87; PULSE 74
== END 2021-07-25 17:24 | disposition home or self-care (01) ==
LOC: EC 15:11
DX: J11.1 Influenza due to unidentified influenza virus with other respiratory manifestations (principal); J45.909 Unspecified asthma, uncomplicated; Z20.822 Contact with and (suspected) exposure to COVID-19
CPT/HCPCS: 36415; 93005; 80053; 84484; 85025; 85730; 87502; 87635; 71046; 99285; 96372; J2930

== ENCOUNTER 2021-09-18 17:40 | Emergency (ER) | payer OTHER ==
[2021-09-18 18:11] VITALS: BP 112/73; PULSE 64; RESP 16; TEMP 98
[2021-09-18] MEDS ORDERED: LIDOCAINE 1% INJ 10MG/ML (20 ML MDV) SQ STA (19:05)
[2021-09-18] MEDS ORDERED: BACITRACIN OINT 1 EACH PACKET TOPICAL ONE (19:19)
--- NOTE | 2021-09-18 19:20 | ED ---
Wound/Laceration HPI - General Chief Complaint: Wound/Laceration Stated Complaint: R hand lac Time Seen by Provider: 09/18/21 19:03 Source: patient, RN notes reviewed Mode of arrival: ambulatory Limitations: no limitations - History of Present Illness Initial Comments: This is a pleasant 31-year-old male presents with a laceration to his right hand which she cut at work on a device that he is calling the cutter. Injury occurred just prior to arrival. Patient is up-to-date on tetanus. Patient is right-hand dominant. No functional impairment. No distal paresthesias. No distal or proximal injuries. No headache, no fever or chills, no changes in vision or hearing, no sore throat or difficulty with speech, no neck pain, no chest pain or shortness of breath, no abdominal pain, no nausea or vomiting, no changes in urination or bowel movements, no numbness or tingling, no extremity pain, no skin rashes or lesions. Past medical, surgical, social, and family history reviewed. - Related Data Home Medications Medication Instructions Recorded Confirmed Acetaminophen Tab [Tylenol Tab] 1,000 mg PO Q6HR PRN 01/17/21 01/17/21 Ibuprofen [Motrin Ib] 400 mg PO Q6H PRN 01/17/21 01/17/21 Previous Rx's Medication Instructions Recorded Albuterol Sulfate [Albuterol 2 puff PO Q6H #8.5 gm 01/17/21 Sulfate Hfa] Cephalexin [Keflex] 500 mg PO Q6HR #40 cap 01/17/21 Ketorolac [Toradol] 10 mg PO Q8HR #15 tab 01/17/21 Tamsulosin [Flomax] 0.4 mg PO DAILY #7 cap 01/17/21 Cyclobenzaprine [Flexeril] 10 mg PO TID #15 tab 02/13/21 Naproxen [EC-Naprosyn] 500 mg PO BID PRN #30 tab 02/13/21 Albuterol Inhaler [Ventolin Hfa 2 puff INHALATION RT-QID PRN #8 gm 07/25/21 Inhaler] Oseltamivir [Tamiflu] 75 mg PO Q12HR 5 Days #10 cap 07/25/21 methylPREDNISolone Dose Pack 4 mg PO DIRECTED #21 tab 07/25/21 [Medrol Dose Pack] Allergies Allergy/AdvReac Type Severity Reaction Status Date / Time No Known Allergies Allergy Verified 09/18/21 18:09 Review of Systems ROS Statement: Those systems with pertinent positive or pertinent negative responses have been documented in the HPI. ROS Other: All systems not noted in ROS Statement are negative. Past Medical History Past Medical History: Asthma History of Any Multi-Drug Resistant Organisms: None Reported Past Surgical History: Orthopedic Surgery Additional Past Surgical History / Comment(s): rt wrist Past Psychological History: No Psychological Hx Reported Smoking Status: Never smoker Past Alcohol Use History: Occasional Past Drug Use History: None Reported General Exam Limitations: no limitations General appearance: alert, in no apparent distress Head exam: Present: atraumatic, normocephalic, normal inspection Eye exam: Present: normal appearance, PERRL, EOMI. Absent: scleral icterus, conjunctival injection, periorbital swelling ENT exam: Present: normal exam, mucous membranes moist Neck exam: Present: normal inspection. Absent: tenderness, meningismus, lymphadenopathy Respiratory exam: Present: normal lung sounds bilaterally. Absent: respiratory distress, wheezes, rales, rhonchi, stridor Cardiovascular Exam: Present: regular rate, normal rhythm, normal heart sounds. Absent: systolic murmur, diastolic murmur, rubs, gallop, clicks GI/Abdominal exam: Present: soft. Absent: distended, tenderness, guarding, rebound, rigid Extremities exam: Present: full ROM, normal capillary refill, other (Superficial flap-like laceration dorsum of the right hand just proximal to the fifth MCP joint. No foreign body. Appears to have adequate vascularity. Pulses intact. Capillary refill normal. Full range of motion strength with regards to phalanges, hand, and wrist.). Absent: normal inspection, tenderness, joint swelling Back exam: Present: normal inspection Neurological exam: Present: alert, oriented X3, CN II-XII intact Psychiatric exam: Present: normal affect, normal mood Skin exam: Present: warm, dry, normal color. Absent: intact, rash Course Vital Signs 09/18/21 18:09 Temperature 98 F Pulse Rate 64 Respiratory 16 Rate Blood Pressure 112/73 O2 Sat by Pulse 100 Oximetry Procedures - Laceration Laceration #1 Consent Obtained: verbal consent Site: upper extremity (Right hand dorsum) Size (cm): 2 Description: flap (Appears to have adequate vascularity) Depth: simple, single layer Anesthetic Used: lidocaine 1%, without epi Anesthesia Technique: local infiltration Amount (mls): 2 Pre-repair: wound explored, irrigated extensively, deep structures intact Size of Sutures: 5-0 Number of Sutures: 3 Technique: simple, interrupted Patient Tolerated Procedure: well, no complications Medical Decision Making - Medical Decision Making Isolated laceration right hand, no tendon involvement. No underlying structure involvement. Tetanus up-to-date. Suture removal in 9 or 10 days. Patient was told to return to the ER for any signs or symptoms worsen. Told to return immediately if any other problems arise. All questions answered. Treatment plan discussed. Patient in agreement Every effort has been made to ensure accuracy of this dictation. However, due to the limitations of electronic medical records and dictation devices, errors in charting still occur. Materials Handling Equipment Operator Dr. Alvarado Disposition Clinical Impression: Laceration of right hand without complication, excluding fingers Disposition: HOME SELF-CARE Condition: Good Instructions (If sedation given, give patient instructions): Laceration (ED) Additional Instructions: Wash the wound daily in warm soap and water. Apply thin layer of antibiotic ointment such as Neosporin or Triple Antibiotic ointment. Keep covered with a Band-Aid. Suture removal in 9 or 10 days. Follow-up with industrial health clinic or the occupational medicine clinic as recommended by your human resources. Return to the ER immediately if any symptoms worsen, new symptoms arise, or any other problems develop. Is patient prescribed a controlled substance at d/c from ED?: No Referrals: None,Stated [Primary Care Provider] - 1-2 days Time of Disposition: 19:20
== END 2021-09-18 19:49 | disposition home or self-care (01) ==
LOC: EC 17:40
DX: S61.411A Laceration without foreign body of right hand, initial encounter (principal); J45.909 Unspecified asthma, uncomplicated; W26.8XXA Contact with other sharp object(s), not elsewhere classified, initial encounter; Y99.0 Civilian activity done for income or pay
CPT/HCPCS: 99282; 12001; J2001